=== PATIENT | female | born 1995 | race Hispanic/Latino ===

== ENCOUNTER 2024-07-07 11:23 | Emergency (ER) | payer MEDICAID ==
[~2024-07-07] VITALS: Ht 160 cm; Wt 83.9 kg
--- NOTE | 2024-07-07 11:56 | ERN ---
General Chief Complaint: Vaginal Bleeding Stated Complaint: VAGINAL BLEEDING, + TEST Time Seen by MD: 11:29 History of Present Illness Initial Comments 28-year-old female, otherwise healthy, approximately six weeks per LMP, presents for vaginal bleeding. She is a , positive home test recently. She developed some clotting pelvic cramping and bleeding today. Patient was had two previous C-sections. No systemic symptoms. No vomiting. No abdominal pain. Allergies: Coded Allergies: No Known Allergies (Unverified Allergy, Unknown, 07/07/24) Past Medical History Past Medical History: No Pertinent History Past Surgical History: Female( History) LMP: Jun 17, 2024 : 3 Para: 2 Aborts: 0 ROS Dictation CONSTITUTIONAL: No chills, no fever, no weakness, no diaphoresis, no malaise. HEAD/FACE: No signs of trauma. EENT: No eye pain, no blurred vision, no tearing, no double vision, no ear pain, no ear discharge, no nose pain, no nasal congestion, no throat pain, no throat swelling, no mouth pain. RESPIRATORY: No cough, no orthopnea, no SOB, no stridor, no wheezing. CARDIOVASCULAR: No chest pain, no edema, no palpitations, no syncope. GASTROINTESTINAL/ABDOMINAL: No abdominal pain, no constipation, no diarrhea, no nausea, no vomiting. GENITOURINARY: Pelvic cramping, vaginal bleeding MUSCULOSKELETAL: No back pain, no gout, no joint pain, no joint swelling, no muscle pain, no muscle stiffness, no neck pain. INTEGUMENTARY: No change in color, no change in hair/nails, no dryness, no lesion, no lumps, no rash. NEUROLOGICAL/PSYCH: No anxiety, not depressed, no emotional problem, no headache, no numbness, no pre-existing deficit, no history of seizures, no tremors, no weakness. HEMATOLOGIC/LYMPHATIC: Not anemic, no history of blood clots, no apparent bleeding, no bruising, glands not swollen. All Systems Negative, Except as Noted. Physical Exam Physical Exam Dictation VITAL SIGNS: Reviewed. GENERAL APPEARANCE: Alert, oriented x3, no acute distress HEAD AND FACE: Non-traumatic. EYES: PERRL, pink conjunctivas, eyelid no trauma, anterior chamber clear. EARS: Pinnas intact and no signs of trauma or erythema. Ear canals clear and no discharge. TMs no erythema. NOSE: No discharge, no bleeding. OROPHARYNX: Mouth normal, teeth no caries, tongue pink. Pharynx clear, no erythema. Tonsils no exudates, no abscesses noted. Mucous membrane moist. NECK: Supple, non-tender, no thyromegaly, no masses, no JVD, no bruits. BREAST: Deferred. CHEST: No tenderness, no crepitus, no paradoxical movement, no retractions. LUNGS: Clear, well-ventilated, symmetric, no rales, no wheezing, no rhonchi, no stridor, good breath sounds bilaterally. HEART: Regular rate, regular rhythm, no murmur, no gallops. VASCULAR: No peripheral edema. ABDOMEN: Soft, positive bowel sounds, nondistended, no guarding, nontender, no rebound, no masses no hepatomegaly, no splenomegaly, no Newton's sign, no hernias. RECTAL: Deferred. GENITAL: Deferred. NEUROLOGICAL: Normal speech, gross motor function intact, gross sensory function intact. MUSCULOSKELETAL: Neck nontender, full range of motion, back nontender, full range of motion. EXTREMITIES: Nontender, full range of motion. SKIN: Color pink, dry, no turgor, no rash, no lacerations, no abrasions, no contusions. LYMPHATICS: Deferred. Results Laboratory and Microbiology Lab and Micro Result Laboratory Tests Test 07/07/24 12:01 White Blood Count 7.8 K/uL (4.8-10.8) Red Blood Count 4.40 MIL/uL (4.00-5.50) Hemoglobin 13.0 g/dL (12.0-16.0) Hematocrit 39.9 % (36-48) Mean Corpuscular Volume 90.7 fL (79-99) Mean Corpuscular Hemoglobin 29.5 pg (27.0-33.0) Mean Corpuscular Hemoglobin Concent 32.6 g/dL (32.0-36.0) Red Cell Distribution Width 13.9 % (11.0-15.5) Platelet Count 220 K/uL (130-400) Mean Platelet Volume 11.8 fL (7.5-10.5) H Immature Granulocyte % (Auto) 0.1 % (0-1) Neutrophils (%) (Auto) 70.0 % (40.0-77.0) Lymphocytes (%) (Auto) 23.5 % (21.0-51.0) Monocytes (%) (Auto) 4.6 % (3.0-13.0) Eosinophils (%) (Auto) 1.3 % (0.0-8.0) Basophils (%) (Auto) 0.5 % (0.0-5.0) Neutrophils # (Auto) 5.4 K/uL (1.8-7.7) Lymphocytes # (Auto) 1.8 K/uL (1.0-4.8) Monocytes # (Auto) 0.4 K/uL (0.1-1.0) Eosinophils # (Auto) 0.10 K/uL (0.00-0.70) Basophils # (Auto) 0.04 K/uL (0.00-0.20) Absolute Immature Granulocyte (auto 0.01 K/uL (0-1) Nucleated Red Blood Cells 0.0 % (0.0-0.19) Sodium Level 137 mmol/L (136-145) Potassium Level 3.7 mmol/L (3.5-5.1) Chloride Level 103 mmol/L (101-111) Carbon Dioxide Level 28 mmol/L (21-32) Blood Urea Nitrogen 10 mg/dL (7-18) Creatinine 0.7 mg/dL (0.5-1.0) Glomerular Filtration Rate Calc 122 mL/min (>90) Random Glucose 94 mg/dL (70-105) Total Calcium 8.9 mg/dL (8.5-10.1) Human Chorionic Gonadotropin, Quant 6687 mIU/mL (0-5) H MDM CC: Vaginal bleeding in , early Historian: Patient Comorbidities: None Limitations by social determinants of health: None Differential diagnosis: Ectopic , miscarriage, bleeding in early Vital signs: Stable Labs (independently ordered and interpreted by me): CBC and BMP are normal. HCG 6600. Ultrasound (independently interpreted by me): No intrauterine , no free fluid or abnormalities. I have very low suspicion for ectopic based on the presentation. Soft nontender nondistended abdomen. She was nontoxic in appearance. I suspect she was having miscarriage. I will recommend that the patient has follow up in 48- 72 hours for re-evaluation and return to the emergency department immediately if she has a any significant symptoms. ED Course Orders Procedure Category Date Status Time Cbc With Differential LAB 07/07/24 Complete 11:30 Abo/Rh BBK 07/07/24 Complete 11:30 Hcg,Quantitative LAB 07/07/24 Complete 11:30 Us Ob Transvaginal US 07/07/24 Resulted 11:30 Lactated Ringers PHA 07/07/24 Complete 1000ml (Lactated 11:30 Type And Screen BBK 07/07/24 Complete 11:30 Basic Metabolic Panel LAB 07/07/24 Complete 11:30 Current Medications Medications (Trade) Dose Ordered Sig/Jackelyn Route PRN Reason Start Time Stop Time Status Last Admin Dose Admin Lactated Ringer's 1,000 ml @ 0 mls/hr Q0M STAT IV 07/07/24 11:30 07/07/24 11:34 DC 07/07/24 11:59 Vital Signs Date Time Temp Pulse Resp B/P (MAP) Pulse Ox O2 Delivery O2 Flow Rate FiO2 07/07/24 13:59 98.1 67 14 112/71 99 Room Air* 0 21 07/07/24 12:04 99.0 66 18 127/81 100 Room Air* 0 21 07/07/24 11:25 99.0 65 16 136/80 100 0 DX & DISP Disposition: Discharge Departure Impression: Primary Impression: Vaginal bleeding affecting early Condition: Stable Additional Instructions: As we discussed, you may be having a miscarriage or an early . Your beta hCG level is 6687. The rest of your lab work ( CBC, BMP) is normal. The ultrasound does not show an intrauterine or any abnormalities. As we discussed, you need to follow up with Dr. Baeza on Wednesday for re- evaluation. As we discussed, there is a small chance that you have an ectopic . If you develop any severe pain, dizziness or lightheadedness, feeling faint, difficult bleeding, or any other concerning symptoms please immediately return to the emergency department. Referrals: SELF,REFERRAL (PCP) SHAYAN BARBOSA DO Jul 07, 2024 11:56
[2024-07-07] MEDS: LACTATED RINGERS 1000ML 1,000 ML IV STA (11:59)
[2024-07-07 12:18] LABS: BASOPHILS # (AUTO) 0.04 K/uL (0.00-0.20); BASOPHILS % (AUTO) 0.5 % (0.0-5.0); EOSINOPHILS % (AUTO) 1.3 % (0.0-8.0); HEMATOCRIT 39.9 % (36-48); IMMATURE GRANULOCYTE ABSOLUTE 0.01 K/uL (0-1); LYMPHOCYTES # (AUTO) 1.8 K/uL (1.0-4.8); LYMPHOCYTES % (AUTO) 23.5 % (21.0-51.0); MEAN CORPUSCULAR HEMOGLOBIN 29.5 pg (27.0-33.0); MEAN CORPUSCULAR HGB CONC 32.6 g/dL (32.0-36.0); MEAN CORPUSCULAR VOLUME 90.7 fL (79-99); MONOCYTES # (AUTO) 0.4 K/uL (0.1-1.0); MONOCYTES % (AUTO) 4.6 % (3.0-13.0); NEUTROPHILS # (AUTO) 5.4 K/uL (1.8-7.7); PLATELET COUNT (AUTO) 220 K/uL (130-400); RED CELL DISTRIBUTION WIDTH 13.9 % (11.0-15.5); WHITE BLOOD COUNT (AUTO) 7.8 K/uL (4.8-10.8)
[2024-07-07 12:25] LABS: CREATININE 0.7 mg/dL (0.5-1.0); POTASSIUM 3.7 mmol/L (3.5-5.1)
--- NOTE | 2024-07-07 13:46 | HMCIMG ---
Exam Type: US OB TRANSVAGINAL Clinical Information: R/O ECTOPIC Comparison: None Findings: The examination shows an anteverted uterus which is normal in size and echogenicity. It measures 13.3 x 4.6 x 7.4 cm. The endometrial lining is normal in thickness. It measures 16 mm. No intrauterine or ectopic seen. The ovaries are normal in size and echogenicity. The right ovary measures 2.9 x 1.3 x 2.6 cm. The left ovary measures 2.2 x 1.2 x 2.7 cm. Vascular Doppler flow exam and spectral analysis of waveforms analysis is unremarkable bilaterally. There is preserved vascularity to both ovaries on Doppler evaluation. Specifically, there is no evidence of ovarian torsion. No free fluid is noted throughout the cul-de-sac. There are no adnexal abnormalities. No other significant abnormalities are seen. No fluid collections or masses or free fluid are identified in the pelvis. Impression: NORMAL EXAM. No evidence of uterine pathology. No evidence of adnexal abnormalities or ovarian torsion. No intrauterine or ectopic seen.
[2024-07-07 13:59] VITALS: BP 112/71; PULSE 67; RESP 14; TEMP 98.1; O2SAT 99
== END 2024-07-07 14:18 | disposition home or self-care (01) ==
LOC: EDH 11:23
DX: O20.9 Hemorrhage in early pregnancy, unspecified (principal); O26.891 Other specified pregnancy related conditions, first trimester; R10.2 Pelvic and perineal pain; Z3A.01 Less than 8 weeks gestation of pregnancy
CPT/HCPCS: 99284; 96360; 96361; 80048; 84702; 85025; 86850; 86900; 86901; 36415; 76817; J7120; J7030